=== PATIENT | male | born 1995 | race Two or more races ===

== ENCOUNTER 2025-03-10 22:02 | Emergency (ER) | payer BC, SELFPAY ==
[2025-03-10 22:14] VITALS: BP 137/84; PULSE 80; RESP 18; TEMP 37.3; O2SAT 98
[2025-03-10 22:15] LABS: Collection Type, Urine Clean Catch
[2025-03-10 22:26] LABS: Amphetamine/Methamp Scrn,U Negative (Negative); Barbiturate Screen,Urine Negative (Negative); Benzodiazepines Screen,Urine Negative (Negative); Benzoylecgonine Screen, Ur Negative (Negative); Fentanyl Screen,Urine Negative (Negative); Opiate Screen,Urine Negative (Negative); THC Screen,Urine Negative (Negative)
--- NOTE | 2025-03-10 22:37 | XR_ITS ---
Examination: CT abdomen and pelvis without contrast. Coronal 3-D reconstructions. Sagittal 2-D reconstructions. Date and time of exam:March 10, 2025 11:11 PM Comparison July 04, 2017 Indications: Onset left flank pain today CTDI: vol (mGy): 9.0 DLP: (mGycm): 499 Technique: Axial images of the abdomen have been obtained, 3 mm slice thickness Intravenous contrast material has not been administered. Low dose protocols were performed. One or more of the following dose reduction techniques were used; automated exposure control, adjustment of the mA and/or KV according to patient size, use of iterative reconstruction technique. Findings: Fatty infiltration throughout the liver no focal liver or splenic lesions Contracted gallbladder No pancreatic or adrenal mass Renal or ureteral calculi No hydronephrosis Aorta normal size No inflamed appendix No diverticulitis No prostatomegaly Intact osseous structures 2 mm calculus in the urinary bladder Impression: No renal or ureteral calculi, no hydronephrosis 2 mm calculus in the urinary bladder
[2025-03-10 22:42] LABS: Bilirubin,Urine Negative (Negative); Blood,Urine 3+ (Negative); Clarity,Urine Turbid (Clear/Hazy); Color,Urine Yellow (Lt Yel-Yel); Glucose, Urine Negative (Negative); Ketones,Urine Negative (Negative); Leukocyte Esterase,Urine Negative (Negative); Nitrite,Urine Negative (Negative); Protein,Urine 1+ (Neg - Trace); RBC,Urine 3766 /hpf (0-3); Specific Gravity,Urine 1.027 (1.001-1.035); Squamous Epithelial Cell,Urine 1 /hpf (0-5); Urobilinogen,Urine Negative mg/dL (0.0-1.0); WBC,Urine 25 /hpf (0-5)
[2025-03-10 22:46] LABS: Culture Indicated,Urine Yes
[2025-03-10 23:08] LABS: Lactate (Lactic Acid) 1.5 mMol/L (0.4-2.0)
[2025-03-10 23:13] LABS: Basophils # (Auto) 0.1 Thou/mm3 (0.0-0.2); Basophils % (Auto) 1 % (0-2.5); Eosinophils # (Auto) 0.2 Thou/mm3 (0.0-0.5); Eosinophils % (Auto) 2 % (0-10); Hematocrit 43.2 % (41.0-53.0); Hemoglobin 14.9 g/dL (13.5-16.0); Immature Granulocytes % (Auto) 0 % (0-0); Immature Granulocytes Auto 0.03 Thou/mm3 (0.00-0.00); Lymphocytes # (Auto) 2.9 Thou/mm3 (1.0-4.8); Lymphocytes % (Auto) 27 % (10-50); Mean Corpuscular HGB Conc 34.5 g/dl (31.0-37.0); Mean Corpuscular Hemoglobin 29.2 pg (25.0-35.0); Mean Corpuscular Volume 85 fL (80-100); Monocytes # (Auto) 0.8 Thou/mm3 (0.0-0.8); Monocytes % (Auto) 7 % (0-12); Neutrophils # (Auto) 6.6 Thou/mm3 (1.8-7.7); Neutrophils % (Auto) 63 % (37-80); Nucleated Red Blood Cell % 0 /100 WBC (0); Platelet Count 250 Thou/mm3 (140-440); RDW Standard Deviation 37.9 fL (35.1-43.9); White Blood Count 10.5 Thou/mm3 (3.8-10.6)
[2025-03-10 23:34] LABS: Alanine Aminotransferase 94 U/L (10-49); Albumin, Serum 4.5 gm/dL (3.5-5.0); Albumin/Globulin Ratio 1.6 (1.2-2.2); Alkaline Phosphatase 83 U/L (46-116); Anion Gap 7 (7-16); Aspartate Amino Transferase 44 U/L (0-34); BUN/Creatinine Ratio 12 Ratio (12-20); Bilirubin,Total 0.5 mg/dL (0.3-1.2); Blood Urea Nitrogen 12 mg/dL (9-23); Calcium 9.4 mg/dL (8.3-10.6); Calcium (Corrected) 9.4 mg/dL (8.5-10.1); Carbon Dioxide 27.9 mMol/L (20.0-31.0); Chloride 101 mMol/L (98-107); Globulin 2.8 gm/dL (2.3-3.5); Glucose 96 mg/dL (74-106); Lipase 46 U/L (12-53); Osmolality,Calculated 271 (275-295); Potassium 3.8 mMol/L (3.4-5.1); Procalcitonin 0.09 ng/ml (0.0-0.49); Sodium 136 mMol/L (136-145); Total Protein 7.3 gm/dL (5.7-8.2); eGFR > 60 See Note
--- NOTE | 2025-03-11 04:54 | EDNOTE_ITS ---
ED Back Injury Pain RME/HPI General Chief Complaint: Back Pain/Injury Stated Complaint: Dark brown urine & Left flank pain Time Seen by Provider: 03/10/25 22:35 Arrival date/time: 03/10/25 22:02 30M with no significant PMH presents to ED with 2 days of L flank pain and dark urine, but no dysuria. Patient states pain was initially worse but is much better now. Patient did have N/V with initial episode as well. Limitations: no limitations Related Data Previous Rx's ?Medication ?Instructions ?Recorded Hydrocodone/Acetaminophen * (NORCO 1 tab PO Q4H PRN AB DOMINAL PAIN #6 03/24/16 5/325 *) tabs Hydrocodone/Acetaminophen * (NORCO 1 tab PO Q6H PRN PA IN #14 tabs 07/05/17 5/325 *) Allergies Allergy/AdvReac Type Severity Reaction Status Date / Time No Known Allergies Allergy Verified 03/10/25 22:06 Review of Systems Review of Systems Systems Reviewed: All systems reviewed, normal except as documented Constitutional Constitutional: Reports system reviewed and no additional complaints, except as documented, Denies fever(s) and Denies headache(s) ENT Ears, Nose, Mouth, and Throat: Denies disequilibrium and Denies headache(s) Cardiovascular Cardiovascular: Reports system reviewed and no additional complaints, except as documented, Denies chest pain and Denies dyspnea Respiratory Respiratory: Reports system reviewed and no additional complaints, except as documented, Denies cough and Denies dyspnea Gastrointestinal Gastrointestinal: Reports system reviewed and no additional complaints, except as documented, Denies abdominal pain, Denies nausea and Denies vomiting Genitourinary Genitourinary: Reports as per HPI, Reports flank pain and Reports other (dark urine ) Neurologic Neurologic: Reports system reviewed and no additional complaints, except as documented, Denies confusion, Denies disequilibrium and Denies headache(s) Psychiatric Psychiatric: Denies confusion Past Medical History Social History SMOKING STATUS: Never smoker ED Exam General Limitations: Present no limitations General appearance: Present alert and in no apparent distress Head Head exam: Present atraumatic Eye Eye exam: Present normal appearance, PERRL and EOMI ENT ENT exam: Present normal exam, normal oropharynx and mucous membranes moist Neck Neck exam: Present normal inspection, full ROM and trachea midline Chest Chest inspection: Present normal inspection and symmetric chest wall rise Respiratory Respiratory exam: Present normal lung sounds bilaterally Cardiovascular Cardiovascular exam: Present regular rate, normal rhythm and normal heart sounds Abdominal Exam Abdominal exam: Present soft and normal bowel sounds Extremities Exam Extremities exam: Present normal inspection and full ROM Back Exam Back exam: Present normal inspection and full ROM Neurological Exam Neurological exam: Present alert, oriented X3 and CN II-XII intact Psychiatric Psychiatric exam: Present normal affect and normal mood Skin Skin exam: Present warm, dry, intact and normal color Course Quality Measures none Orders Category Date Time Status CT abdomen pelvis wo con Stat Exams 03/10/25 22:37 Completed CBC Stat Lab 03/10/25 22:56 Completed CMP [Comprehensive Metabolic Panel] Stat Lab 03/10/25 22:56 Completed Drug Screen,Urine Stat Lab 03/10/25 22:10 Completed Lactate (Lactic Acid) Stat Lab 03/10/25 22:56 Completed Lipase Stat Lab 03/10/25 22:56 Completed Procalcitonin Stat Lab 03/10/25 22:56 Completed Urinalysis, C/S if Indicated Stat Lab 03/10/25 22:10 Completed Urine Culture Stat Lab 03/10/25 22:10 Received Vital Signs Vital signs: Vital Signs Temperature 99.2 F 03/10/25 22:14 Pulse Rate 80 03/10/25 22:14 Respiratory Rate 18 03/10/25 22:14 Blood Pressure 137/84 H 03/10/25 22:14 Pulse Oximetry (%) 98 03/10/25 22:14 Oxygen Delivery Method Room Air 03/10/25 22:14 O2 at 98% on RA and WNLs Back Pain / Injury MDM Narrative MDM Narrative:: 30M with no significant PMH presents to ED with 2 days of L flank pain and dark urine, but no dysuria. Patient states pain was initially worse but is much better now. Patient did have N/V with initial episode as well. Physical exam reveals no flank tenderness. Patient is afebrile, calm, and alert. CT reveals 2 mm bladder stone. No leukocytosis. CMP unremarkable. UA many RBCs. Previous more intense pain likely due to stone traveling down ureter. Patient data External records reviewed:: [facility] previous records Clinical information provided by:: patient Social determinants that could affect healthcare access:: none Patient has the following chronic illnesses:: none How is presenting disease/condition affected by chronic disease/condition?: no chronic disease Evaluation data The following diagnostics were reviewed and interpreted by me:: lab results and radiology exam(s) Lab and/or radiology exams considered but not ordered:: ordered Interpretation Summary: above Medications / Prescriptions Medications or Prescriptions considered but not ordered:: not ordered Medication administrations:: n/a Consultations Consultation(s) initiated? (list below): No Diagnosis Differential diagnosis back pain/injury: lumbar radiculopathy, sciatica, strain of lumbar region, renal colic, pyelonephritis, thoracic back pain, AAA, discitis and other (bladder stone) Most likely diagnosis given after review of the tests above:: bladder stone Admission Indicated Admission indicated?: not indicated Admission Request Was there a request for admission?: No Disposition Plan Disposition Plan: Discharge Discharge Attestation Discharge Attestation: The patient and all family members were given an opportunity to ask questions and understood the discharge instructions. Discharge instructions specifically effects, indications for sooner follow up or return to the emergency department, and the expected course of current diagnosis. Patient condition: Stable Discharge Plan Plan Patient Disposition: HOME (Self Care) Disposition Comment: Stable Prescriptions/Referrals Prescriptions/Med Rec: No Action Hydrocodone/Acetaminophen * (NORCO 5/325 *) 1 TAB tablet 1 tab PO Q4H PRN (Reason: ABDOMINAL PAIN) Qty: 6 0RF Hydrocodone/Acetaminophen * (NORCO 5/325 *) 1 TAB tablet 1 tab PO Q6H PRN (Reason: PAIN) Qty: 14 0RF Problem List Clinical Impression: Bladder stone Patient/Caregiver Discharge Instructions Education Materials: Understanding Bladder Stones Additional Instructions: Please follow-up with PCP within 24-48 hours and return immediately if symptoms worsen. Print Language: Polish Stand Alone Forms: Patient Portal Info Letter MICHAEL/KAMILA Supervising Physician MICHAEL/KAMILA Supervising Physician: Dr. Angel
== END 2025-03-11 00:04 | disposition home or self-care (01) ==
LOC: SERX 03-11 00:23
PROVIDERS: Physician Assistant; Emergency Provider Emergency Medicine; PCP Physician Assistant
DX: N21.0 Calculus in bladder (principal)
CPT/HCPCS: 36415; 74176; 80053; 80307; 81001; 83605; 83690; 84145; 85025; 87086; 99284